=== PATIENT | female | born 1950 | race Caucasian/White ===

== ENCOUNTER → 2016-05-30 | Outpatient (CLI) | payer BC | END | disposition home or self-care (01) | LOC: RADNMMAIN 10:44 | PROVIDERS: ATTEND Family Medicine | DX: R07.9 Chest pain, unspecified (principal); Z53.9 Procedure and treatment not carried out, unspecified reason ==

== ENCOUNTER → 2016-06-06 | Outpatient (CLI) | payer BC ==
--- NOTE | 2016-06-06 11:59 | NM ---
EXAMINATION TYPE: NM stress cardiolite complete DATE OF EXAM: 06/06/2016 10:37 AM COMPARISON: Previous exam 28 January 2011 HISTORY: TECHNIQUE: After the intravenous administration of 10.7 mCi Tc 99m Sestamibi - Rest images obtained 45 minutes post injection. The patient exercised using a JADON protocol and 1 minute prior to peak exercise was injected with 27.5 mCi Tc 99m Sestamibi - Stress images obtained 10 minutes post injecti on. FINDINGS: Targeted heart rate was achieved during performance of the study. Review of stress and rest SPECT cortez ges demonstrates no distinct perfusion abnormality. Gated analysis shows normal wall motion with an estimated left ventricular ejection fraction of 37 % on stress images. IMPRESSION: No scintigraphic evidence for reversible ischemia. Abnormal low cardiac ejection fraction, consider e chocardiographic correlation, question whether this is technical A Yellow message has been communicated to Emily Sanderson III, MD via the [employer] system on 06/06/2016 11:56 AM, Message ID [id number].
--- NOTE | 2016-06-06 12:29 | EST ---
DATE OF SERVICE: 06/06/2016 AGE: 65Y SEX: F HT: 5'3" WT: 182 lbs. Protocol Oswald: X Other: Stress Cardiolite Stage: 3 Dur. of Exercise: 7:00 *Heart Rate Blood Pressure *Rest: 87 Rest: 144/82 * *Max. Achieved: 136 Maximum BP: 141/79 85% PMHR: 133 100% PMHR: 157 *METS: 8.5 INDICATIONS: Chest pain. MEDICATIONS: - Patient was exercised for a total period of 7 minutes. Peak heart rate of 136 was achieved. Maximum blood pressure of 141/79 mmHg was noted. Patient did not complain of any chest pain during the test. Resting EKG shows normal sinus rhythm with normal NC interval and QRS duration and normal ST-T waves. No ST segment depression suggestive of ischemia was noted. Occasional PVCs were noted. FINAL IMPRESSION: 1. This exercise test is not suggestive of ischemia. 2. Patient did not complain of any anginal pain during the test. 3. Patient's exercise tolerance is fair.
== END | disposition home or self-care (01) ==
LOC: RADNMMAIN 08:07
PROVIDERS: ATTEND Family Medicine
DX: R07.9 Chest pain, unspecified (principal)
CPT/HCPCS: 93017; 78452; A9500

== ENCOUNTER → 2016-07-27 | Outpatient (CLI) | payer BC ==
[2016-07-27 17:37] LABS: CH 30.6; CHCM 32.5; HCT 41.5 % (34.0-46.0); HDW 2.26; HGB 13.5 gm/dL (11.4-16.0); MCH 30.6 pg (25.0-35.0); MCHC 32.4 g/dL (31.0-37.0); MCV 94.4 fL (80.0-100.0); Mean Platelet Volume 7.5; RDW 13.3 % (11.5-15.5); WBC 7.1 k/uL (3.8-10.6)
[2016-07-27 17:54] LABS: Anion Gap 12 mmol/L; Blood Urea Nitrogen 14 mg/dL (7-17); Carbon Dioxide 30 mmol/L (22-30); Chloride 101 mmol/L (98-107); Non-African American GFR(MDRD) >60 (>60 ml/min/1.73 sqM); Potassium 3.7 mmol/L (3.5-5.1); Sodium 143 mmol/L (137-145)
== END | disposition home or self-care (01) ==
LOC: LABPAT 17:17
PROVIDERS: ATTEND Internal Medicine Interventional Cardiology
DX: Z01.812 Encounter for preprocedural laboratory examination (principal); I42.9 Cardiomyopathy, unspecified
CPT/HCPCS: 80051; 82565; 84520; 85027

== ENCOUNTER 2016-08-04 06:21 | Day surgery (SDC) | payer BC ==
[2016-08-02 14:44] VITALS: BMI 31.7
[~2016-08-04 06:21] MED LIST: ALPRAZolam 0.25 MG TAB PO PRN; ALPRAZolam 0.5 MG TAB PO PRN; ASPIRIN 325 MG TAB PO STA; ATORVASTATIN 80 MG TAB PO STA; NITROGLYCERIN SL TABS 0.4 MG TAB SUBLINGUAL PRN; SODIUM CHLORIDE 0.9% 1,000 ML in EMPTY BAG 1 BAG IV ONE
[2016-08-04 07:11] LABS: Glucose,Whole Blood 107 mg/dL (75-99)
[2016-08-04 07:12] VITALS: RESP 18
[2016-08-04] MEDS ORDERED: diphenhydrAMINE 50 MG/ML 1 ML VIAL IVP ONE (07:33)
[2016-08-04] MEDS ORDERED: fentaNYL (PF) 50 MCG/ML 2 ML AMP IV ONE (07:34)
[2016-08-04] MEDS ORDERED: LIDOCAINE 2% INJ 20 MG/ML SQ ONE ×2 (07:36)
[2016-08-04] MEDS ORDERED: VERAPAMIL SYRINGE (5 MG/10 ML) INTRAARTER ONE (07:40)
[2016-08-04] MEDS ORDERED: IOHEXOL 350 MG/ML 100 ML BOTTLE INJ ONE (07:51)
[2016-08-04] MEDS ORDERED: RX INFO: IV CONTRAST WAS GIVEN 1 EACH MISC MISCELLANE PRN (08:06)
[2016-08-04] MEDS ORDERED: SODIUM CHLORIDE 0.9% 1,000 ML IV SCH (08:15)
[2016-08-04] MEDS ORDERED: NON-FORMULARY DRUG (Flaxseed Oil [Omega-3 Flaxseed Oil] 1,000 MG) PO SCH (09:00)
[2016-08-04] MEDS ORDERED: NON-FORMULARY DRUG (Ubidecarenone [Co Q-10] 100 MG) PO SCH (09:00)
[2016-08-04] MEDS ORDERED: LEVOTHYROXINE SODIUM 125 MCG PO SCH (09:00)
[2016-08-04] MEDS ORDERED: CHOLECALCIFEROL 1,000 UNIT TAB PO SCH (09:00)
[2016-08-04] MEDS ORDERED: ASCORBIC ACID 500 MG TAB PO SCH (09:00)
[2016-08-04] MEDS ORDERED: NON-FORMULARY DRUG (Biotin [Biotin] 5 MG) PO SCH (09:00)
[2016-08-04] MEDS ORDERED: NON-FORMULARY DRUG (Lysine [Lysine] 500 MG) PO SCH (09:00)
[2016-08-04] MEDS ORDERED: NON-FORMULARY DRUG (Omega-3 Fatty Acids/Fish Oil [Fish Oil 1,000 Mg Softgel] 1 EACH) PO SCH (09:00)
[2016-08-04] MEDS ORDERED: NON-FORMULARY DRUG (Vitamin E [Vitamin E] 100 UNIT) PO SCH (09:00)
[2016-08-04] MEDS ORDERED: NON-FORMULARY DRUG (Vitamin B Complex [Vitamin B Complex] 1 EACH) PO SCH (09:00)
[2016-08-04] MEDS ORDERED: NON-FORMULARY DRUG (Mirabegron [Myrbetriq] 50 MG) PO SCH (09:00)
[2016-08-04] MEDS ORDERED: NON-FORMULARY DRUG (Magnesium Oxide 250 MG) PO SCH (09:00)
[2016-08-04 10:16] VITALS: TEMP 98.2
--- NOTE | 2016-08-04 10:18 | CC ---
DATE OF SERVICE: Mrs. Mitchell is a 65-year-old female with known history of hypertension, hyperlipidemia, and diabetes mellitus who has been complaining of symptoms of dyspnea, underwent a myocardial perfusion imaging that revealed a severe impairment of the left ventricular systolic function with ejection fraction at 37% with no defects. In view of that, recommendation made regarding cardiac catheterization. The procedure as well as the risks and complications were discussed with the patient who is in full understanding and agreement. PROCEDURE: Patient was brought to the [facility] in a fasting, semi-sedated state and after receiving fentanyl and Benadryl and reaching moderate conscious sedated state, using Xylocaine anesthesia and Seldinger technique, a 6 [place] sheath was introduced in the right radial artery. Selective right and left coronary angiography was performed using 5 [place] 3-1/2 Bend right Melissa catheters. Multiple views of the coronary artery including hemiaxial views were obtained. Following that, a 5 [place] tight pigtail catheter was introduced into the left ventricle and a 30 degree AMAYA view of the left ventricle was obtained. Following that, catheter and sheaths were removed. Hemostasis was obtained with deployment with a TR band. There were no immediate complications. Patient is returned to her room in stable condition. Of note, patient received 4500 units of intravenous heparin as well as intra-arterial verapamil. FINDINGS: LEFT MAIN: This is a large-size vessel bifurcating into the left circumflex, left anterior descending artery. Left main coronary artery is without any obstructive disease. LEFT ANTERIOR DESCENDING ARTERY: This is a large-size vessel, reaching toward the apex, giving rise diagonal branch. The left anterior descending artery as well as its branches have no evidence of obstructive coronary artery disease. LEFT CIRCUMFLEX: This is a nondominant vessel, giving rise to 2 obtuse marginal branches. The left circumflex as well as its branches have no evidence of obstructive coronary artery disease. RIGHT CORONARY ARTERY: This is a large dominant vessel, giving rise into PDA and posterolateral segment branches. The right PDA reaches toward the inferoapical wall. The right coronary artery as well as its branches have no evidence of obstructive coronary artery disease. LEFT VENTRICULOGRAM: Left ventriculogram was performed in 30 degree AMAYA view and revealed normal left ventricular size and systolic function. Ejection fraction is 60%. There was no significant mitral regurgitation. HEMODYNAMICS: There was no gradient across the aortic valve, the left ventricular end-diastolic pressure is 20 mmHg. Duration of the procedure 22 minutes. IMPRESSION: 1. Normal coronary arteries. 2. Normal left ventricular size and systolic function. RECOMMENDATION: In view of finding anatomy, would recommend to continue medical therapy with aggressive risk modifications being initiated. Those findings and recommendations were discussed with the patient and her family who are in full understanding and agreement.
--- NOTE | 2016-08-04 10:21 | LTR ---
August 04, 2016 RE: Megan Mitchell Dear Dr. Sanderson: I had the pleasure to perform cardiac catheterization on Mrs. Mitchell at [facility] on August 04, 2016 and a full copy of the procedure note will be forwarded to you. In brief, she was found to have no evidence of obstructive coronary artery disease with a preserved systolic function and based on this finding, I would recommend to continue medical therapy with aggressive risk modifications being initiated. Thank you again for allowing me to participate in this patient's care. Please feel to call for any questions. Sincerely yours, TARIK JORDAN MD
[2016-08-04] MEDS ORDERED: ACETAMINOPHEN TAB 325 MG TAB PO PRN (12:04)
[2016-08-04 13:02] VITALS: BP 130/66; PULSE 66
[2016-08-04] MEDS ORDERED: NON-FORMULARY DRUG (Omeprazole 20 MG) PO SCH (17:30)
[2016-08-04] MEDS ORDERED: HYDROCHLOROTHIAZIDE PO SCH (21:00)
[2016-08-04] MEDS ORDERED: [UNRECOGNIZED DRUG - OTHER] PO SCH (21:00)
[2016-08-04] MEDS ORDERED: ATORVASTATIN 40 MG TAB PO SCH (21:00)
[2016-08-04] MEDS ORDERED: VALSARTAN PO SCH (21:00)
[2016-08-04] MEDS ORDERED: ASPIRIN 81 MG CHEW PO SCH (21:00)
[2016-08-04] MEDS ORDERED: NON-FORMULARY DRUG (Liraglutide [Victoza 2-Pak] 1.8 MG) SQ SCH (21:00)
[2016-08-05] MEDS ORDERED: DESMOPRESSIN ACETATE PO SCH (08:07)
[2016-08-10] MEDS ORDERED: DESMOPRESSIN ACETATE 0.1 MG PO SCH (08:07)
== END 2016-08-04 13:08 | disposition home or self-care (01) ==
LOC: CATHCVL 06:21
PROVIDERS: ATTEND Internal Medicine Interventional Cardiology
DX: R07.9 Chest pain, unspecified (principal); R06.00 Dyspnea, unspecified; I42.9 Cardiomyopathy, unspecified; I10 Essential (primary) hypertension; E78.2 Mixed hyperlipidemia; K21.9 Gastro-esophageal reflux disease without esophagitis; Z82.49 Family history of ischemic heart disease and other diseases of the circulatory system; E11.9 Type 2 diabetes mellitus without complications; Z79.84 Long term (current) use of oral hypoglycemic drugs; Z79.82 Long term (current) use of aspirin; Z79.899 Other long term (current) drug therapy
CPT/HCPCS: 93458; 99152; C1894; C1769; J2001; J1200; Q9967; J3010; J1644

== ENCOUNTER → 2016-09-19 | Outpatient (CLI) | payer BC ==
--- NOTE | 2016-09-19 14:04 | MM ---
Reason for exam: screening (asymptomatic). Last mammogram was performed 1 year and 2 months ago. History: Patient is postmenopausal. Family history of breast cancer in paternal grandmother at age 60, breast cancer in mother at age 81, and breast cancer in maternal aunt. Benign right mammotome panel of the right breast, December 22, 2006. Physical Findings: A clinical breast exam by your physician is recommended on an annual basis and results should be correlated with mammographic findings. MG Screening Mammo w CAD Bilateral CC and MLO view(s) were taken. Prior study comparison: July 06, 2015, bilateral MG screening mammo w CAD. May 13, 2014, bilateral MG screening mammo w CAD. The breast tissue is almost entirely fat. Previous mammotome biopsy in the right breast. Asymmetric breast tissue in the left breast. This finding is changed when compared with previous exams. ASSESSMENT: Incomplete: need additional imaging evaluation, BI-RAD 0 RECOMMENDATION: Special view mammogram of the left breast. If lesion persists on supplemental views, image directed ultrasound is recommended. [facility] will attempt to contact patient to return for supplemental views and ultrasound if indicated.
== END | disposition home or self-care (01) ==
LOC: RADMAMWWP 10:29
PROVIDERS: ATTEND Obstetrics & Gynecology
DX: Z12.31 Encounter for screening mammogram for malignant neoplasm of breast (principal); R92.2 Inconclusive mammogram; Z80.3 Family history of malignant neoplasm of breast

== ENCOUNTER → 2016-09-19 | Outpatient (CLI) | payer BC ==
--- NOTE | 2016-09-19 14:10 | BD ---
EXAMINATION TYPE: MG DEXA axial skeleton. DATE OF EXAM: 09/19/2016 CLINICAL HISTORY: Height: 63.25 Weight: 180 FRAX RISK QUESTIONS: Alcohol (3 or more units per day): no Family History (Parent hip fracture): no Glucocorticoids (More than 3mos): no (Ex: prednisone, prednisolone, methylprednisolone, dexamethasone, and hydrocortisone). History of Fracture in Adulthood: yes: right wrist, left elbow & toes Secondary Osteoporosis: 1. Type 1 Diabetes: no 2. Hyperthyroidism: no 3. Menopause before 45: hysterectomy age 42, menopause age 47 4. Malnutrition: no 5. Chronic liver disease: no Rheumatoid Arthritis: no Current Tobacco Use: no RISK FACTORS HISTORY OF: History of Wrist Fracture: yes When: 27 years ago Surgery to Wrist (right): yes When: about 27 years ago Other Fractures since Age 52: yes, left elbow When: about 4 years ago Family History of Osteoporosis: yes, mother Drink Alcohol: occasionally Active: yes Diet low in dairy products/other sources of calcium: at least one serving a day Postmenopausal woman: yes Take estrogen and/or progesterone medications: no Lost more than 2 inches in height since high school: no Frequent falls: no Hyperparathyroidism: yes Adrenal Insufficiency: no MEDICATIONS: Prednisone or other steroids: no Thyroid Medications: yes Which medication: a type of synthroid How Long: some form of synthroid for over 24 years Osteoporosis Medications:no Additional Medications: diabetes meds, blood pressure meds, cholesterol meds, Vitamin D Additional History: hypercalcemia, diabetic, diabetes insipidus, Verito Disease EXAM MEASUREMENTS: Bone mineral densitometry was performed using the [employer] System. Bone mineral density as measured about the Lumbar spine is: ----- L1-L4(G/cm2): 1.181 T Score Values are as follows: ----- L2: -0.4 ----- L3: -0.1 ----- L4: 0.6 ----- L1-L4: 0.0 Bone mineral density not previously done at this facility; done elsewhere Bone mineral density about the R hip (g/cm2): 0.757 Bone mineral density about the L hip (g/cm2): 0.776 T Score values are as follows: -----R Neck: -2.0 -----L Neck: -1.9 -----R Total: -0.8 -----L Total: -0.9 Bone mineral density not previously done at this facility; done elsewhere IMPRESSION: Osteopenia (T Score between -2.5 and -1 as noted by T score values at the femoral neck levels in both hips. There is slightly increased risk of fracture and the patient may be considered for treatment. Re-Screen 2-5 years. NOTE: T-SCORE=SD OF THE YOUNG ADULT MEAN.
--- NOTE | 2016-09-19 14:11 | BD ---
EXAMINATION TYPE: MG DEXA appendicular skeleton. DATE OF EXAM: CLINICAL HISTORY: Height: 63.25 inches Weight: 180 pounds FRAX RISK QUESTIONS: Alcohol (3 or more units per day): no Family History (Parent hip fracture): no Glucocorticoids (More than 3mos): no (Ex: prednisone, prednisolone, methylprednisolone, dexamethasone, and hydrocortisone). History of Fracture in Adulthood: yes: wrist, elbow, toes Secondary Osteoporosis: 1. Type 1 Diabetes: no 2. Hyperthyroidism: no 3. Menopause before 45: hysterectomy age 42; menopause age 47 4. Malnutrition: no 5. Chronic liver disease: no Rheumatoid Arthritis: no Current Tobacco Use: no RISK FACTORS HISTORY OF: History of Wrist Fracture: yes, right When: about 27 years ago Surgery to Wrist (right): yes When: about 27 years ago Other Fractures since Age 52: yes, left elbow When: about 4 years ago Family History of Osteoporosis: yes, mother Drink Alcohol: occasionally Active: yes Diet low in dairy products/other sources of calcium: at least one serving a day Postmenopausal woman: yes Take estrogen and/or progesterone medications: no Lost more than 2 inches in height since high school: no Frequent falls: no Poor Health: no Hyperparathyroidism: YES Adrenal Insufficiency: no MEDICATIONS: Prednisone or other steroids: no Thyroid Medications: yes Which medication: some form of synthroid How Long: different forms of synthroid for over 24 years Osteoporosis Medications: no Additional Medications: diabetes meds, blood pressure meds, cholesterol meds, Vitamin D Additional History: hypercalcemia, diabetic, diabetes insipidus, Verito's Disease EXAM MEASUREMENTS: Bone mineral densitometry was performed using the [employer] System. Bone mineral density about the L Wrist (g/cm2): 0.628 T Score values are as follows: -----Dist. R+U: -0.6 -----Prox. R+U: -1.1 -----Radius total: -0.8 Bone mineral density not previously done at this facility, done elsewhere IMPRESSION: Osteopenia (T Score between -2.5 and -1 as noted by T score values noted femoral neck level in both h ips. There is slightly increased risk of fracture and the patient may be considered for treatment. Re -Screen 2-5 years. NOTE: T-SCORE=SD OF THE YOUNG ADULT MEAN.
== END | disposition home or self-care (01) ==
LOC: RADBDWWP 10:36
PROVIDERS: ATTEND Internal Medicine
DX: M85.80 Other specified disorders of bone density and structure, unspecified site (principal); E83.52 Hypercalcemia; E03.9 Hypothyroidism, unspecified; E11.9 Type 2 diabetes mellitus without complications
CPT/HCPCS: 77080; 77081; 82043; 83970; 84443

== ENCOUNTER → 2016-09-28 | Outpatient (CLI) | payer BC ==
--- NOTE | 2016-09-28 08:31 | MM ---
Reason for exam: additional evaluation requested from abnormal screening. Last mammogram was performed less than 1 month ago. History: Patient is postmenopausal. Family history of breast cancer in paternal grandmother at age 60, breast cancer in mother at age 81, and breast cancer in maternal aunt. Benign right mammotome panel of the right breast, December 22, 2006. Physical Findings: Nurse did not find any significant physical abnormalities on exam. MG Work Up Mamm w CAD LT CC, MLO, and LM view(s) were taken of the left breast. Prior study comparison: September 19, 2016, bilateral MG screening mammo w CAD. There are scattered fibroglandular densities. Focal asymmetry does not completely go away and has faint layering calcifications. These results were verbally communicated with the patient and result sheet given to the patient on 09/28/16. ASSESSMENT: Incomplete: need additional imaging evaluation, BI-RAD 0 RECOMMENDATION: Ultrasound of the left breast.
--- NOTE | 2016-09-28 08:33 | USB ---
Reason for exam: additional evaluation requested from abnormal screening. History: Patient is postmenopausal. Family history of breast cancer in paternal grandmother at age 60, breast cancer in mother at age 81, and breast cancer in maternal aunt. Benign right mammotome panel of the right breast, December 22, 2006. US Breast Workup Limited LT Left breast ultrasound demonstrates no cystic or solid lesion seen. These results were verbally communicated with the patient and result sheet given to the patient on 09/28/16. ASSESSMENT: Probably benign, BI-RAD 3 RECOMMENDATION: Follow-up diagnostic mammogram of the left breast in 6 months.
== END | disposition home or self-care (01) ==
LOC: RADMAMWWP 06:52
PROVIDERS: ATTEND Obstetrics & Gynecology
DX: R92.8 Other abnormal and inconclusive findings on diagnostic imaging of breast (principal)
CPT/HCPCS: 76642; G0206

== ENCOUNTER 2017-07-19 08:31 | Day surgery (SDC) | payer BC, OTHER ==
[2017-07-17 12:52] VITALS: BMI 30.9
[~2017-07-19 08:31] MED LIST changes: -ALPRAZolam 0.25 MG TAB PO PRN; -ALPRAZolam 0.5 MG TAB PO PRN; -ASPIRIN 325 MG TAB PO STA; -ATORVASTATIN 80 MG TAB PO STA; +LACTATED RINGERS 1,000 ML IV SCH; +LIDOCAINE 1% 20 ML VIAL (10MG/ML) FOR IV START INTRADERMA PRN; -NITROGLYCERIN SL TABS 0.4 MG TAB SUBLINGUAL PRN; -SODIUM CHLORIDE 0.9% 1,000 ML in EMPTY BAG 1 BAG IV ONE
[2017-07-19 09:59] VITALS: RESP 16; TEMP 98.8
[2017-07-19 10:12] LABS: Glucose,Whole Blood 94 mg/dL (75-99)
[2017-07-19] MEDS ORDERED: LIDOCAINE 1% INJ 10MG/ML (20 ML MDV) ONE (10:28)
[2017-07-19] MEDS ORDERED: fentaNYL (PF) 50 MCG/ML 2 ML AMP ONE (10:28)
[2017-07-19] MEDS ORDERED: PROPOFOL 10 MG/ML 20 ML VIAL IV ONE (10:28)
--- NOTE | 2017-07-19 10:37 | P.PCN ---
Date of Procedure: 07/19/17 Procedure(s) Performed: BRIEF HISTORY: Patient is a 66-year-old, pleasant, white female, scheduled for an upper endoscopy as part of long-standing history of GERD performed as 20 years duration. However for the last 2 years she is been having worsening symptoms recently her medications were changed to Prilosec 20 mg twice daily and Zantac at bedtime with better control of her symptoms. She is scheduled for an upper endoscopy to rule out completely reflux disease.. PROCEDURE PERFORMED: Esophagogastroduodenoscopy with biopsy. PREOPERATIVE DIAGNOSIS: Long-standing history of GERD. IV sedation per anesthesia. PROCEDURE: After informed consent was obtained, the patient was brought into the endoscopy unit. IV sedation was administered by Anesthesia under continuous monitoring. Initially the Olympus GIF-140 video endoscope was inserted into the mouth. Esophagus intubated without any difficulty. It was gradually advanced into the stomach and duodenum and carefully examined. The bulb and the second part of the duodenum appeared normal. The scope at this time was withdrawn to the stomach, adequately insufflated with air, and upon careful examination, mucosa of the antrum, had scattered erosions and biopsies were done from this area. The body, cardia and the fundus appeared normal. The scope was then withdrawn into the esophagus. Small hiatal hernia noted. The GE junction was located at 37 cm from the incisors. The esophagus appeared normal. There were no erosions or ulcerations seen and the patient tolerated the procedure well. IMPRESSION: 1. Small hiatal hernia but no evidence of esophagitis or Verduzco's esophagus. 2. Antral erosive gastritis. RECOMMENDATIONS: The findings of this examination were discussed with the patient as well as a family. She will follow with the biopsy results. She was advised to continue with Prilosec 20 mg twice daily and Zantac at bedtime and she'll be seen in office in 6 weeks.
[2017-07-19 11:11] VITALS: BP 129/79; PULSE 58
== END 2017-07-19 11:30 | disposition home or self-care (01) ==
LOC: ORWHC2ENDO 08:31
PROVIDERS: ATTEND Internal Medicine Gastroenterology
DX: K29.50 Unspecified chronic gastritis without bleeding (principal); K44.9 Diaphragmatic hernia without obstruction or gangrene; K21.9 Gastro-esophageal reflux disease without esophagitis; I10 Essential (primary) hypertension; E78.5 Hyperlipidemia, unspecified; E23.2 Diabetes insipidus; E07.9 Disorder of thyroid, unspecified; E11.9 Type 2 diabetes mellitus without complications; Z79.84 Long term (current) use of oral hypoglycemic drugs; Z79.899 Other long term (current) drug therapy; Z79.82 Long term (current) use of aspirin; Z79.890 Hormone replacement therapy
CPT/HCPCS: 88305; 43239; J2001; J3010; J2704

== ENCOUNTER → 2018-01-01 | Outpatient (CLI) | payer OTHER ==
--- NOTE | 2018-01-02 09:24 | MM ---
Reason for exam: screening (asymptomatic). Last mammogram was performed 1 year and 3 months ago. History: Patient is postmenopausal. Family history of breast cancer in paternal grandmother at age 60, breast cancer in mother at age 81, and breast cancer in maternal aunt. Benign right mammotome panel of the right breast, December 22, 2006. Physical Findings: A clinical breast exam by your physician is recommended on an annual basis and results should be correlated with mammographic findings. MG Screening Mammo w CAD Bilateral CC and MLO view(s) were taken. Prior study comparison: September 28, 2016, left breast MG work up mamm w CAD LT. September 19, 2016, bilateral MG screening mammo w CAD. There are scattered fibroglandular densities. No significant changes when compared with prior studies. ASSESSMENT: Benign, BI-RAD 2 RECOMMENDATION: Routine screening mammogram of both breasts in 1 year.
== END | disposition home or self-care (01) ==
LOC: RADMAMWWP 07:57
PROVIDERS: ATTEND Obstetrics & Gynecology
DX: Z12.31 Encounter for screening mammogram for malignant neoplasm of breast (principal); Z80.3 Family history of malignant neoplasm of breast
CPT/HCPCS: 77067

== ENCOUNTER → 2019-10-08 | Outpatient (CLI) | payer OTHER, BC ==
--- NOTE | 2019-10-09 08:21 | MM ---
Reason for exam: screening (asymptomatic). Last mammogram was performed 1 year and 9 months ago. History: Patient is postmenopausal. Family history of breast cancer in paternal grandmother at age 60, breast cancer in mother at age 81, and breast cancer in maternal aunt. Benign right mammotome panel of the right breast, December 22, 2006. Physical Findings: A clinical breast exam by your physician is recommended on an annual basis and results should be correlated with mammographic findings. MG Screening Mammo w CAD Bilateral CC and MLO view(s) were taken. Prior study comparison: January 01, 2018, bilateral MG screening mammo w CAD. September 28, 2016, left breast MG work up mamm w CAD LT. There are scattered fibroglandular densities. Stable benign calcifications. There is no discrete abnormality. No significant changes when compared with prior studies. ASSESSMENT: Benign, BI-RAD 2 RECOMMENDATION: Routine screening mammogram of both breasts in 1 year.
== END | disposition home or self-care (01) ==
LOC: RADMAMWWP 07:41
PROVIDERS: ATTEND Family Medicine
DX: Z12.31 Encounter for screening mammogram for malignant neoplasm of breast (principal)
CPT/HCPCS: 77067

== ENCOUNTER 2020-01-17 06:39 | Day surgery (SDC) | payer BC ==
[~2020-01-17 06:39] MED LIST changes: +LIDOCAINE 1% (10MG/ML) FOR IV START INTRADERMA PRN; -LIDOCAINE 1% 20 ML VIAL (10MG/ML) FOR IV START INTRADERMA PRN
[2020-01-17 07:09] VITALS: RESP 16; TEMP 98.7
[2020-01-17 07:22] LABS: Glucose,Whole Blood 141 mg/dL (75-99)
[2020-01-17] MEDS ORDERED: PROPOFOL 10 MG/ML 20 ML VIAL IV ONE (07:56)
--- NOTE | 2020-01-17 08:19 | P.PCN ---
Date of Procedure: 01/17/20 Procedure(s) Performed: BRIEF HISTORY: Patient is a 69-year-old pleasant white female scheduled for an elective colonoscopy as a part of screening for colorectal neoplasia. PROCEDURE PERFORMED: Colonoscopy with biopsy. PREOPERATIVE DIAGNOSIS: Screening for colon cancer. IV sedation per Anesthesia. PROCEDURE: After informed consent was obtained, the patient, was brought into the endoscopy unit. IV sedation was administered by Anesthesia under continuous monitoring. Digital rectal examination was normal. Initially the Olympus CF-160 flexible video colonoscope was then inserted in the rectum, gradually advanced into the cecum without any difficulty. Careful examination was performed as the scope was gradually being withdrawn. Ileocecal valve and the appendiceal orifice were visualized and appeared normal. Prep was excellent. Mucosa of the cecum, ascending colon was mormal. In the hepatic flexure there was a 3 mm5 mm polyp removed by cold biopsy. Rest of the , transverse colon, descending colon, sigmoid colon, and rectum appeared normal.5 mm rectal polyp s/p cold biopsy. scattered sigmoid diverticulosis seen. Retroflexion was performed in the rectum and no lesions were seen. The patient tolerated the procedure well. IMPRESSION: 3 mm hepatic flexure polyp that was cold biopsy 4 mm proximal rectal polyp cold biopsy Scattered sigmoid diverticulosis RECOMMENDATIONS: Findings of this examination were discussed with the patient and her family. She was advised to follow with the biopsy results. If the biopsy shows an adenoma she can have a repeat colonoscopy in 5 years .
[2020-01-17 08:35] VITALS: BP 112/69; PULSE 67
== END 2020-01-17 08:50 | disposition home or self-care (01) ==
LOC: ORWHC2ENDO 06:39
PROVIDERS: ATTEND Internal Medicine Gastroenterology
DX: Z12.11 Encounter for screening for malignant neoplasm of colon (principal); D12.3 Benign neoplasm of transverse colon; K62.1 Rectal polyp; K57.30 Diverticulosis of large intestine without perforation or abscess without bleeding; I10 Essential (primary) hypertension; E78.5 Hyperlipidemia, unspecified; E11.9 Type 2 diabetes mellitus without complications; E07.9 Disorder of thyroid, unspecified; K21.9 Gastro-esophageal reflux disease without esophagitis; Z79.890 Hormone replacement therapy; Z79.899 Other long term (current) drug therapy; Z79.84 Long term (current) use of oral hypoglycemic drugs; Z90.49 Acquired absence of other specified parts of digestive tract; Z90.89 Acquired absence of other organs; Z96.651 Presence of right artificial knee joint
CPT/HCPCS: 88305; 45380; J2704

== ENCOUNTER → 2020-10-07 | Outpatient (CLI) | payer BC ==
--- NOTE | 2020-10-08 09:49 | BD ---
EXAMINATION TYPE: Axial Bone Density DATE OF EXAM: 10/07/2020 COMPARISON: NONE CLINICAL HISTORY: Height: 64 Weight: 176.6 FRAX RISK QUESTIONS: Alcohol (3 or more units per day): no Family History (Parent hip fracture): no Glucocorticoids (More than 3mos): no (Ex: prednisone, prednisolone, methylprednisolone, dexamethasone, and hydrocortisone). History of Fracture in Adulthood: yes Secondary Osteoporosis: 1. Type 1 Diabetes: no 2. Hyperthyroidism: no 3. Menopause before 45: no 4. Malnutrition: no 5. Chronic liver disease: no Rheumatoid Arthritis: no Current Tobacco Use: no RISK FACTORS HISTORY OF: History of Wrist Fracture: right When: 29 years ago Surgery to Spine/Hip(right/left)/Wrist (right/left): right wrist When: 29 years ago Family History of Osteoporosis: yes Active: yes Diet low in dairy products/other sources of calcium: no Postmenopausal woman: age 47 Lost more than 2 inches in height since high school: no MEDICATIONS: diabetic meds, blood pressure meds, cholesterol meds, vitamins Thyroid Medications: synthroid How Lon years Additional History: EXAM MEASUREMENTS: Bone mineral densitometry was performed using the [employer] System. Bone mineral density as measured about the Lumbar spine is: ----- L1-L4(G/cm2): 1.116 T Score Values are as follows: ----- L2: -0.8 ----- L3: -0.7 ----- L4: 0.0 ----- L1-L4: -0.5 Bone mineral density has: decreased -0.5 % since study of: 09.19.2016 Bone mineral density about the R hip (g/cm2): 0.777 Bone mineral density about the L hip (g/cm2): 0.727 T Score values are as follows: -----R Neck: -2.2 -----L Neck: -1.9 -----R Total: -1.2 -----L Total: -1.1 Bone mineral density has: decreased -4.3 % since study of: 09.19.2016 IMPRESSION: Osteopenia. NOTE: T-SCORE=SD OF THE YOUNG ADULT MEAN.
== END | disposition home or self-care (01) ==
LOC: RADBDWWP 14:31
PROVIDERS: ATTEND Internal Medicine
DX: Z13.820 Encounter for screening for osteoporosis (principal); M85.89 Other specified disorders of bone density and structure, multiple sites; Z78.0 Asymptomatic menopausal state
CPT/HCPCS: 77080

== ENCOUNTER → 2021-02-26 | Outpatient (CLI) | payer BC ==
--- NOTE | 2021-03-02 11:36 | MM ---
Reason for exam: screening (asymptomatic). Last mammogram was performed 1 year and 5 months ago. History: Patient is postmenopausal. Family history of breast cancer in paternal grandmother at age 60, breast cancer in mother at age 81, and breast cancer in maternal aunt. Benign right mammotome panel of the right breast, December 22, 2006. Physical Findings: A clinical breast exam by your physician is recommended on an annual basis and results should be correlated with mammographic findings. MG Screening Mammo w CAD Bilateral CC and MLO view(s) were taken. Prior study comparison: October 08, 2019, bilateral MG screening mammo w CAD. January 01, 2018, bilateral MG screening mammo w CAD. September 28, 2016, left breast MG work up mamm w CAD LT. There are scattered fibroglandular densities. Grouped anterior medial left breast calcifications have increased. Magnification views are recommended. ASSESSMENT: Incomplete: need additional imaging evaluation, BI-RAD 0 RECOMMENDATION: Special view mammogram of the left breast. (magnification) [facility] will attempt to contact patient to return for supplemental views.
== END | disposition home or self-care (01) ==
LOC: RADMAMWWP 14:16
PROVIDERS: ATTEND Family Medicine
DX: Z12.31 Encounter for screening mammogram for malignant neoplasm of breast (principal); Z80.3 Family history of malignant neoplasm of breast; Z78.0 Asymptomatic menopausal state
CPT/HCPCS: 77067

== ENCOUNTER → 2021-03-03 | Outpatient (CLI) | payer BC ==
--- NOTE | 2021-03-03 11:18 | MM ---
Reason for exam: additional evaluation requested from abnormal screening. Last mammogram was performed less than 1 month ago. History: Patient is postmenopausal. Family history of breast cancer in paternal grandmother at age 60, breast cancer in mother at age 81, and breast cancer in maternal aunt. Benign right mammotome panel of the right breast, December 22, 2006. Physical Findings: Nurse did not find any significant physical abnormalities on exam. MG Work Up Mamm w CAD LT CC with magnification, LM with magnification, and LM view(s) were taken of the left breast. Prior study comparison: February 26, 2021, bilateral MG screening mammo w CAD. October 08, 2019, bilateral MG screening mammo w CAD. January 01, 2018, bilateral MG screening mammo w CAD. There are scattered fibroglandular densities. Apparent regional calcifications upper inner quadrant left breast spread out on lateral view. There is a group of round and punctate calcifications which should be reassessed at follow up. These results were verbally communicated with the patient and result sheet given to the patient on03/03/21. ASSESSMENT: Probably benign, BI-RAD 3 RECOMMENDATION: Follow-up diagnostic mammogram of the left breast in 6 months.
== END | disposition home or self-care (01) ==
LOC: RADMAMWWP 08:47
PROVIDERS: ATTEND Family Medicine
DX: R92.1 Mammographic calcification found on diagnostic imaging of breast (principal); Z80.3 Family history of malignant neoplasm of breast
CPT/HCPCS: 77065

== ENCOUNTER → 2021-03-31 | Outpatient (CLI) | payer BC ==
--- NOTE | 2021-03-31 15:10 | CT ---
EXAMINATION TYPE: CT wrist RT wo con DATE OF EXAM: 03/31/2021 COMPARISON: None. HISTORY: Rt wrist pain, distal radial fracture noted CT DLP: 126 mGycm Automated exposure control for dose reduction was used. FINDINGS: Overlying cast material is present. [place] osseous structures are demineralized. There is comminuted slightly displaced intra-articular fracture through the distal radial meta-epiphysis. There are sever al small ossific fracture fragments especially along the palmar aspect. Significant involvement of th e articular surface without step off or loss of articulation. Narrowing radial aspect distal radius a s it articulates with the triquetrum. Comminuted slightly displaced fracture through the ulnar aspect of the ulnar styloid with a few tiny ossific fragments. Subchondral cystic change involving the scaphoid with additional scattered geodes throughout the prox imal line distal carpal rows. Mild to moderate triscaphe joint space narrowing. Moderate narrowing at base of first metacarpal with mild to moderate spurring. Mild diffuse subcutaneous edema is present. Muscle bulk is preserved. IMPRESSION: As above.
== END | disposition home or self-care (01) ==
LOC: RADCTMAIN 13:40
PROVIDERS: ATTEND Orthopaedic Surgery Hand Surgery
DX: S52.571A Other intraarticular fracture of lower end of right radius, initial encounter for closed fracture (principal); S52.611A Displaced fracture of right ulna styloid process, initial encounter for closed fracture

== ENCOUNTER → 2021-08-16 | Outpatient (CLI) | payer BC ==
--- NOTE | 2021-08-17 08:04 | US ---
EXAMINATION TYPE: US arterial LE single level DATE OF EXAM: 08/16/2021 1:03 PM CLINICAL HISTORY: R25.2 CRAMP AND SPASM, R20.1 HYPOESTHESIA OF SKIN,E11.9. Doppler Waveforms: Right: Multiphasic and monophasic Left: Multiphasic, and monophasic Ankle-Brachial Indices: Right: 1.11 Left: 1.19 Toe Brachial Indices: Right: 0.67 Left: 0.66 IMPRESSION: 1. ADOLFO within normal limits. However, monophasic waveforms seen distally with TBI suggestive of possi ble claudication correlate clinically.
== END | disposition home or self-care (01) ==
LOC: RADUSWWP 12:09
PROVIDERS: ATTEND Family Medicine
DX: E11.9 Type 2 diabetes mellitus without complications (principal); R20.1 Hypoesthesia of skin; R25.2 Cramp and spasm
CPT/HCPCS: 93922

== ENCOUNTER → 2021-10-11 | Outpatient (CLI) | payer BC ==
--- NOTE | 2021-10-11 13:17 | MM ---
Reason for Exam: Follow-up at short interval from prior study. Last screening mammogram was performed 7 month(s) ago. Patient History: Menarche at age 14. First Full-Term at age 23. Hysterectomy at age 42. Postmenopausal. Patient has history of breast feeding. 12/22/2006, Benign Core Biopsy on the right side. Paternal grandmother had breast cancer, age 60. Maternal aunt had breast cancer, age 40. Mother had breast cancer, age 81. Risk Values: Meka 5 year model risk: 3.9%. NCI Lifetime model risk: 11.6%. Prior Study Comparison: 10/08/2019 Bilateral Screening Mammogram, [facility]. 02/26/2021 Bilateral Screening Mammogram, [facility]. 03/03/2021 Left Diagnostic Mammogram, [facility]. Tissue Density: Left: There are scattered fibroglandular densities. Findings: Analyzed By CAD. Regional smooth round calcifications remain present. No increasing suspicious cluster of microcalcifications is evident. Overall Assessment: Benign, BI-RAD 2 Management: Screening Mammogram of both breasts in 6 months. A clinical breast exam by your physician is recommended on an annual basis and results should be correlated with mammographic findings. This exam should not preclude additional follow-up of suspicious palpable abnormalities. Results were given to the patient verbally at the time of exam. Electronically signed and approved by: Brent Goetz D.O. Radiologis
== END | disposition home or self-care (01) ==
LOC: RADMAMWWP 12:35
PROVIDERS: ATTEND Family Medicine
DX: R92.1 Mammographic calcification found on diagnostic imaging of breast (principal); Z78.0 Asymptomatic menopausal state; Z80.3 Family history of malignant neoplasm of breast
CPT/HCPCS: 77065

== ENCOUNTER → 2022-04-14 | Outpatient (CLI) | payer BC | END | disposition home or self-care (01) | LOC: LABWHC1 15:44 | PROVIDERS: ATTEND Family Medicine | DX: Z01.818 Encounter for other preprocedural examination (principal) | CPT/HCPCS: 36415; 93005 ==

== ENCOUNTER 2022-04-20 11:26 | Day surgery (SDC) | payer BC, OTHER ==
[~2022-04-20 11:26] MED LIST changes: +HYDROmorphone 0.5 MG/0.5 ML SYRINGE IVP PRN; +MIDAZOLAM 2 MG/2 ML VIAL IV PRN; +ONDANSETRON 4 MG/2 ML VIAL IVP ONE
[2022-04-20 12:13] VITALS: TEMP 97.2
[2022-04-20 12:22] LABS: Glucose,Whole Blood 127 mg/dL (70-110)
[2022-04-20] MEDS ORDERED: DEXAMETHASONE SOD PHOSPHATE 4 MG/ML 1 ML VIAL IVP ONE (12:25)
[2022-04-20] MEDS ORDERED: fentaNYL (PF) 50 MCG/1 ML VIAL IVP ONE (12:40)
[2022-04-20] MEDS ORDERED: MIDAZOLAM 2 MG/2 ML VIAL IVP ONE (12:40)
[2022-04-20] MEDS ORDERED: MIDAZOLAM 2 MG/2 ML VIAL ONE (13:24)
[2022-04-20] MEDS ORDERED: PROPOFOL 10 MG/ML 20 ML VIAL IV ONE (13:24)
[2022-04-20] MEDS ORDERED: fentaNYL (PF) 50 MCG/ML 2 ML AMP ONE (13:24)
[2022-04-20] MEDS ORDERED: SODIUM CHLORIDE 0.9% (PF) 10 ML VIAL ONE (13:24)
[2022-04-20] MEDS ORDERED: ROPIVACAINE 5 MG/ML 30 ML VIAL ONE (13:24)
[2022-04-20] MEDS ORDERED: LIDOCAINE 2% INJ 20 MG/ML (2 ML VIAL) ONE (13:24)
[2022-04-20] MEDS ORDERED: SUCCINYLCHOLINE CHLORIDE 200 MG/10 ML VIAL IV ONE (13:24)
--- NOTE | 2022-04-20 14:50 | P.ANPRN ---
Procedure Note - Anesthesia - Nerve Block Performed Left Adductor Canal Time Out Performed: Yes (12:39) Date of Procedure: 04/20/22 Procedure Start Time: :39 Procedure Stop Time: :44 Location of Patient: PreOp Indication: Acute Post-Operative Pain, Requested by Surgeon (Dr Gibbons) Sedation Type: Sedate with meaningful contact maintained Preparation: Sterile Prep Position: Supine Catheter: None Needle Types: Pajunk Needle Gauge: 21 Ultrasound used to visualize needle placement: Yes Ultrasound used to observe medication spread: Yes Injectate: 0.5% Ropivacaine (see comment for volume) (15cc +5cc PF Normal saline) Blood Aspirated: No Pain Paresthesia on Injection Noted: No Resistance on Injection: Normal Image Stored and Saved: Yes Events: Uneventful and Well Tolerated
--- NOTE | 2022-04-20 14:51 | P.ANPRN ---
Procedure Note - Anesthesia - Nerve Block Performed Left Popliteal Time Out Performed: Yes Date of Procedure: 04/20/22 Procedure Start Time: 12:45 Procedure Stop Time: 12:51 Location of Patient: PreOp Indication: Acute Post-Operative Pain, Requested by Surgeon (Dr Gibbons) Sedation Type: Sedate with meaningful contact maintained Preparation: Sterile Prep Position: Right Lateral Catheter: None Needle Types: Pajunk Needle Gauge: 21 Ultrasound used to visualize needle placement: Yes Ultrasound used to observe medication spread: Yes Injectate: 0.5% Ropivacaine (see comment for volume) (15cc +5cc PF Normal saline) Blood Aspirated: No Pain Paresthesia on Injection Noted: No Resistance on Injection: Normal Image Stored and Saved: Yes Events: Uneventful and Well Tolerated
--- NOTE | 2022-04-20 15:27 | P.OP ---
Date of Procedure: 04/20/22 Preoperative Diagnosis: Left Achilles tendon rupture Postoperative Diagnosis: Same Procedure(s) Performed: 1. Flexor hallucis longus tendon transfer left ankle 2. Secondary repair of left Achilles tendon 3. Gastroc recession left leg Implants: Arthrex 4.75 mm swivel lock anchors 2 Arthrex [id number] tissue allograft Anesthesia: LAMONTE Surgeon: Issac Gibbons Estimated Blood Loss (ml): 5 Pathology: none sent Condition: stable Disposition: PACU Description of Procedure: Prior to the patient being brought to the operating room, anesthesia administered nerve block on the surgical extremity. Once completed, the patient was taken into the operating room. Timeout was taken to confirm correct patient identifiers, correct laterality of surgery, and correct procedure. When all staff in the room were in agreement with the timeout, the patient was induced and placed under general anesthesia. The patient was then placed in the prone position on the operating room table. Appropriate padding was placed beneath the patient's face as well as in the thoracic area. Once anesthesia was satisfied with the patient positioning, a well-padded tourniquet was placed on the thigh. Then the leg was prepped and draped in the usual manner. The leg was exsanguinated and the tourniquet inflated to 250 mmHg. Attention was directed over the posterior aspect of the leg, where the gastroc recession was performed. A linear midline incision was made distal to the gastroc muscle belly. The incision was deepened down to the subcutaneous layer careful to identify, avoid, and retract any neurovascular structures and cauterize any bleeding vessels. Blunt dissection was carried down to level the deep fascia. The fascia was incised and then bluntly dissected off the gastroc aponeurosis. A transverse incision was made through the aponeurosis from medial to lateral. Once completed the ankle was dorsiflexed and a visible gap. And the aponeurosis, indicating a full release. The wound is thoroughly irrigated. The subcutaneous layer was closed with 4-0 Vicryl. And skin closure done with alfonzo. Then attention was directed over the Achilles insertion. A curvilinear incision was made starting in the medial side of the Achilles tendon then curving post eriorly over the insertion point. The incision was deepened down to the subcutaneous layer, careful to identify, avoid, and retract any neurovascular structures and cauterize any bleeding vessels the skin and subcutaneous layers were dissected in a full-thickness fashion off the Achilles tendon. There was a complete rupture of the Achilles tendon from the insertion of the calcaneus with 5-6 cm of proximal retraction. The distal stump was calcific and thickened. Any abnormal tissue in the Achilles tendon insertion was also sharply debrided. Once that was completed, attention was directed to the posterior calcaneus where there was a large calcaneal spur. An osteotome was used to remove all the abnormal bony growth in the posterior calcaneus. This also allowed for exposure the bone to help facilitate the reattachment of the Achilles tendon. The Achilles tendon was retracted and then the deep fascia over the flexor hallucis longus muscle belly was incised and divided to expose the muscle. The muscle was identified and then followed to the tendon going into the medial compartment. The great toe and ankle were plantar flexed to allow for as much tenderness possible and then the tendon was carefully transected and delivered into the surgical field. A whipstitch using #2 FiberWire was then used on the distal end of the tendon. Then a large wire was placed on the superior aspect of the calcaneal body near the Achilles insertion. The wire was advanced plantarly and distally to avoid the tuberosity. An 8.5 mm reamer was then placed over the guidewire and drilled through the calcaneal body through the plantar surface of the bone. The wire was left in place and the ends of the stitch on the tendon were passed through the eyelet and then the pin was pulled through the hole the suture on the bottom of the foot. Then with the ankle in neutral position tension was placed on the suture bringing the flexor hallucis longus tendon into the drill hole the calcaneus once proper tensioning was achieved an 8 mm interference screw was inserted and the drill hole, locking the tendon in place. Dorsiflexion the ankle indicated good tension on the muscle belly and tendon. The area was thoroughly irrigated with sterile saline. A forceps was used to grab the proximal stump of the Achilles tendon and pull it distally. Then 4 strands of suture tape or passed through the body of the tendon from medial to lateral. Tension was then placed on both ends of the suture and pulled distally to take out any creep in the suture. Drill holes for 4.75 mm swivel lock anchors were made on the medial lateral aspects of the calcaneus distal to the insertion point. The lateral set of sutures and was then placed through the anchor and the anchor inserted into the drill hole in the calcaneus and then the anchor advanced so that it was below the depth of the bone. The medial side of suture was then placed through the other anchor and then the suture was tensioned to bring the tendon as close as possible to the calcaneus insertion. While holding the tight in the ankle slightly plantar flexed the second anchor was inserted with the suture into the drill hole and advanced until the anchor was below the depth of bone. The Achilles tendon which had been split in the medial lateral portion that the distal insertion was then sewn over the proximal stump of the Achilles tendon. The wound is then thoroughly irrigated with antibiotic saline. 2-0 Vicryl was then used to sew the flexor hallucis longus tendon muscle complex to the deep side of the Achilles tendon. Any thickened Achilles tendon was also sharply removed at this point. Then an Arthrex aflex 500 allograft was then placed over the repair site and then utilizing 4-0 Monocryl, the graft was sewn over the repair site incorporated into the Achilles tendon. The area was thoroughly irrigated with sterile saline. The subcutaneous layer was closed with 3-0 Monocryl and skin closure done with alfonzo. Both incisions were covered with an Arthrex jumpstart dressing. A dry bulky dressing was then applied to the leg. The tourniquet was released and capillary refill return to all digits on the foot. The patient was then placed in a well-padded, well molded plaster posterior mold/sugar tong splint. The ankle was held at slight plantarflexion until the splint was fully dried. Then the patient was rolled back to the transfer table. Anesthesia was reversed and he was non-traumatically extubated. The patient tolerated the above procedure and anesthesia well, and went to recovery with vital signs stable.
[2022-04-20 15:32] VITALS: RESP 16
[2022-04-20] MEDS ORDERED: HYDROcodone/APAP 5-325MG 1 EACH TAB ONE (16:15)
[2022-04-20] MEDS ORDERED: HYDROcodone/APAP 5-325MG 1 EACH TAB PO ONE (16:19)
[2022-04-20 16:49] VITALS: BP 153/98; PULSE 82
== END 2022-04-20 17:30 | disposition home or self-care (01) ==
LOC: OR 11:26
PROVIDERS: ATTEND Podiatrist
DX: S86.012A Strain of left Achilles tendon, initial encounter (principal); M77.32 Calcaneal spur, left foot; G89.18 Other acute postprocedural pain; I10 Essential (primary) hypertension; E78.5 Hyperlipidemia, unspecified; E11.9 Type 2 diabetes mellitus without complications; K21.9 Gastro-esophageal reflux disease without esophagitis; D68.2 Hereditary deficiency of other clotting factors; F10.20 Alcohol dependence, uncomplicated; E66.9 Obesity, unspecified; Z68.29 Body mass index [BMI] 29.0-29.9, adult; Z86.718 Personal history of other venous thrombosis and embolism; E03.9 Hypothyroidism, unspecified; E21.4 Other specified disorders of parathyroid gland; H40.9 Unspecified glaucoma; Z85.51 Personal history of malignant neoplasm of bladder; Z98.890 Other specified postprocedural states; Z82.49 Family history of ischemic heart disease and other diseases of the circulatory system; Z83.3 Family history of diabetes mellitus; Z79.84 Long term (current) use of oral hypoglycemic drugs; Z79.82 Long term (current) use of aspirin; Z79.891 Long term (current) use of opiate analgesic; Z79.899 Other long term (current) drug therapy; Z79.02 Long term (current) use of antithrombotics/antiplatelets; Z79.83 Long term (current) use of bisphosphonates; Z79.01 Long term (current) use of anticoagulants; Z79.890 Hormone replacement therapy
CPT/HCPCS: 64447; 64445; 76942; 27654; 27687; 27691; C1713 ×2; Q4125; J2250; J0330; J1100; J0690; J2405; J3010 ×2; J2795; J2704; J1170; J2001

== ENCOUNTER → 2022-08-04 | Outpatient (CLI) | payer BC ==
--- NOTE | 2022-08-05 09:35 | MM ---
Reason for Exam: Screening (asymptomatic). Last mammogram was performed 1 year(s) and 5 month(s) ago. Patient History: Menarche at age 14. First Full-Term at age 23. Hysterectomy at age 42. Postmenopausal. Patient has history of breast feeding. 12/22/2006, Benign Core Biopsy on the right side. Paternal grandmother had breast cancer, age 60. Maternal aunt had breast cancer, age 40. Mother had breast cancer, age 81. Risk Values: Meka 5 year model risk: 3.9%. NCI Lifetime model risk: 11.6%. Prior Study Comparison: 02/26/2021 Bilateral Screening Mammogram, [facility]. 03/03/2021 Left Diagnostic Mammogram, [facility]. 10/11/2021 Left MG diagnostic mammo LT w CAD, [facility]. Tissue Density: There are scattered fibroglandular densities. Findings: Analyzed By CAD. There are scattered and loosely grouped tiny benign-appearing round and linear calcifications redemonstrated throughout the bilateral breasts. Mammotome biopsy clip in the right breast is again seen. Asymmetric prominent tissue anterior slightly outer aspect left breast again seen. There is no suspicious group of microcalcifications or new suspicious mass in either breast. Overall Assessment: Benign, BI-RAD 2 Management: Screening Mammogram of both breasts in 1 year. A clinical breast exam by your physician is recommended on an annual basis and results should be correlated with mammographic findings. Electronically signed and approved by: Mateo Jackson M.D.
== END | disposition home or self-care (01) ==
LOC: RADMAMWWP 14:05
PROVIDERS: ATTEND Family Medicine
DX: Z12.31 Encounter for screening mammogram for malignant neoplasm of breast (principal); Z78.0 Asymptomatic menopausal state; Z80.3 Family history of malignant neoplasm of breast
CPT/HCPCS: 77067

== ENCOUNTER → 2022-10-10 | Outpatient (CLI) | payer BC ==
--- NOTE | 2022-10-10 09:23 | BD ---
EXAMINATION TYPE: Axial Bone Density DATE OF EXAM: 10/10/2022 CLINICAL HISTORY: 72 years old Female. ICD-10 CODE: M85.80 OSTEOPENIA Height: 63.25in Weight: 175lb FRAX RISK QUESTIONS: History of Fracture in Adulthood: yes Secondary Osteoporosis: RISK FACTORS HISTORY OF: History of Wrist Fracture: yes, right When: over 30 years ago Surgery to Wrist (right): yes When: 30 years ago Family History of Osteoporosis: yes Active: yes Postmenopausal woman: yes Take estrogen and/or progesterone medications: yes, none current How long: about 1 year MEDICATIONS: Thyroid Medications: Which medication: yes synthroid How Lon years Additional Medications: diabetic med, bp med, cholesterol med Additional History: Type II diabetes, parathyroid disease EXAM MEASUREMENTS: Bone mineral densitometry was performed using the [employer] System. Bone mineral density as measured about the Lumbar spine is: ----- L1-L4(G/cm2): 1.114 T Score Values are as follows: ----- L1: -0.9 ----- L2: -1.1 ----- L3: -0.7 ----- L4: 0.1 ----- L1-L4: -0.5 Z Score Values are as follows: ----- L1: 0.2 ----- L2: 0.1 ----- L3: 0.5 ----- L4: 1.2 ----- L1-L4: 0.6 Bone mineral density has: Decreased -0.2% since study of: 10-07-20 Bone mineral density about the R hip (g/cm2): 0.822 Bone mineral density about the L hip (g/cm2): 0.797 T Score values are as follows: -----R Neck: -2.0 -----L Neck: -2.4 -----R Total: -1.5 -----L Total: -1.7 Z Score values are as follows: -----R Neck: -0.6 -----L Neck: -1.0 -----R Total: -0.4 -----L Total: -0.6 Bone mineral density has: Decreased -6.0% since study of: 10-07-20 FRAX%s: The graph provided illustrates a 21% chance for a major osteoporotic fx and a 4.9% chance for the hips probability for fx in 10 years time. IMPRESSION: Osteopenia (T Score between -2.5 and -1). There is slightly increased risk of fracture and the patient may be considered for treatment. Re-Screen 2-5 years. NOTE: T-SCORE=SD OF THE YOUNG ADULT MEAN.
== END | disposition home or self-care (01) ==
LOC: RADBDWWP 08:38
PROVIDERS: ATTEND Internal Medicine
DX: M85.89 Other specified disorders of bone density and structure, multiple sites (principal)
CPT/HCPCS: 77080

== ENCOUNTER → 2024-01-04 | Outpatient (CLI) | payer BC ==
--- NOTE | 2024-01-15 10:19 | MM ---
Reason for Exam: Screening (asymptomatic). Last mammogram was performed 1 year(s) and 5 month(s) ago. Patient History: Menarche at age 14. First Full-Term at age 23. Hysterectomy at age 42. Postmenopausal. Patient has history of breast feeding. 12/22/2006, Benign Core Biopsy on the right side. Paternal grandmother had breast cancer, age 60. Maternal aunt had breast cancer, age 40. Mother had breast cancer, age 81. Risk Values: Meka 5 year model risk: 3.9%. NCI Lifetime model risk: 10.6%. Prior Study Comparison: 03/03/2021 Left Diagnostic Mammogram, [facility]. 10/11/2021 Left MG diagnostic mammo LT w CAD, [facility]. 08/04/2022 Bilateral MG 3D screening mammo w/cad, [facility]. Tissue Density: There are scattered areas of fibroglandular density. Findings: Analyzed By CAD. Right breast: There is no suspicious group of microcalcifications or new suspicious mass. Benign-appearing calcifications right breast. Left breast: There is no suspicious group of microcalcifications or new suspicious mass. Benign-appearing calcifications left breast. Overall Assessment: Benign, BI-RAD 2 Management: Screening Mammogram of both breasts in [address] [facility] will attempt to contact patient to return for supplemental views and ultrasound if indicated. Patient should continue monthly self-breast exams. A clinical breast exam by your physician is recommended on an annual basis. This exam should not preclude additional follow-up of suspicious palpable abnormalities. Note on Meka scores and lifetime risk: 1. A Meka score greater than 3% is considered moderate risk. If this is the case, consider specialist referral to assess eligibility for a risk reducing agent. 2. If overall lifetime risk for the development of breast cancer is 20% or higher, the patient may qualify for future screening with alternating mammogram and breast MRI. [facility], , 01/15/2024 10:16 AM. Electronically signed and approved by: Foreign Epps DO
== END | disposition home or self-care (01) ==
LOC: RADMAMWWP 12:54
PROVIDERS: ATTEND Family Medicine
CPT/HCPCS: 77067